=== PATIENT | male | born 1965 | race Hispanic/Latino ===

== ENCOUNTER 2021-06-26 01:17 | Day surgery (SDC) | payer OTHER, SELFPAY ==
[2021-06-16 13:00] VITALS: BMI 33.2
[2021-06-26 06:56] VITALS: BP 137/85; PULSE 68; RESP 18; TEMP 35.6; O2SAT 100
[2021-06-26] MEDS: LACTATED RINGERS 1,000 ML 150 ML IV CONT (07:00)
--- NOTE | 2021-06-26 07:10 | WPDANESEPPF ---
Anes - Initial Pre Proc Eval Procedure: Operation Date: 06/26/21 08:15 Proposed Procedures p Screening Colonoscopy - Winston Agee MD Date/Time: 06/26/21 07:10 Surgeon: Winston Agee MD Pre Op Diagnosis: hx of colon polyps, neoplasm screening Patient Data Age: 55 Gender: M Height: 1.78 m Weight: 107 kg Last Vital Signs Temp 35.6 C L 06/26/21 06:56 Pulse 68 06/26/21 06:56 Resp 18 06/26/21 06:56 BP 137/85 06/26/21 06:56 Pulse Ox 100 06/26/21 06:56 Allergies Allergy/AdvReac Type Severity Reaction Status Date / Time No Known Allergies Allergy Verified 06/26/21 06:55 Home Medications Medication Instructions Recorded Confirmed Type blood sugar diagnostic #300 each 01/16/21 03/01/21 Rx metformin 500 mg tablet,extended 1,000 mg PO QPM #180 tablet 03/27/21 06/16/21 Rx release 24hr meloxicam 15 mg tablet 15 mg PO DAILY #90 tablet 04/26/21 06/16/21 Rx Invokana 300 mg PO DAILY 06/16/21 06/16/21 History atorvastatin 40 mg PO DAILY 06/16/21 06/16/21 History fenofibrate micronized 200 mg PO DAILY 06/16/21 06/16/21 History zolpidem 10 mg PO QHS PRN 06/16/21 06/16/21 History Patient hx anesthesia problems: none Family hx anesthesia problems: none PMFSH Past Medical History Medical History Marrero's palsy 2013 Dyslipidemia History of colon polyps Insomnia Type 2 diabetes mellitus without complication, without long-term current use of insulin Unspecified osteoarthritis, unspecified site Surgical History Surgical History History of cardiac cath 2009 History of discectomy 2008 - lumbar spine surgery History of partial knee replacement Right Knee - 11/2015 History of right shoulder replacement 12/2019 History of surgery on right wrist 2006 - post fall Family History Family History Grandparent Diabetes mellitus Father Family history of cardiovascular disease Other Carcinoma of colon Social History Social History Smoking status: Never smoker Second hand tobacco smoke exposure: No Alcohol intake: current Alcohol use details: no history Substance use: never Substance use type: does not use Living arrangements: with family Gender identity (if verbalized by the patient): Male Spiritual care concerns: No Anes - Eval Final PreProcedure Day of Procedure 06/26/21 07:10 Patient weight: obese Heart: regular rate and rhythm Lungs: clear to auscultation Airway: Mallampati scale class 1 Neurological: alert and oriented Last oral intake: >/= 8 hours ASA classification: II Emergent: no Anesthetic plan: proceed Anesthesia type and monitoring: general GIVS Informed Consent: The patient's anesthetic plan and its attendant risks and benefits were discussed with the patient/family/POA. Questions were solicited and answers provided to the satisfaction of the patient/family/POA.
[2021-06-26 07:20] LABS: Glucose Point of Care 151 mg/dl (65-105)
--- NOTE | 2021-06-26 07:58 | WPDGICN ---
Assessment and Plan Assessment and plan (1) History of colon polyps: Code(s): Z86.010 - Personal history of colonic polyps Status: Acute Assessment and Plan: Patient has a prior history of colon polyps. For this reason colonoscopy has been suggested at 5 year intervals. Further recommendations will be given after endoscopy. (2) Family history of colon cancer in father: Code(s): Z80.0 - Family history of malignant neoplasm of digestive organs Status: Acute Assessment and Plan: Patient's father had colon cancer. For this reason patient is advised to have colonoscopy follow-up set 5 year intervals. GI Consult Note Consult date/time: 06/26/21 07:58 HPI: Fernando Gates is a 55 year old male Presents for screening colonoscopy. Patient has a history of colon polyps by previous colonoscopy 2010. Current weight appetite bowel movements are normal. He denies abdominal pain. He has had no bleeding. Family history is significant that his father had colon cancer. Patient presents today for screening colonoscopy. Review of Systems Review of Systems: All systems reviewed & are unremarkable except as noted in HPI and below PMFSH Past Medical History Medical History Marrero's palsy 2014 Dyslipidemia History of colon polyps Insomnia Type 2 diabetes mellitus without complication, without long-term current use of insulin Unspecified osteoarthritis, unspecified site Surgical History Surgical History History of cardiac cath 2009 History of discectomy 2008 - lumbar spine surgery History of partial knee replacement Right Knee - 11/2015 History of right shoulder replacement 12/2019 History of surgery on right wrist 2006 - post fall Family History Family History Grandparent Diabetes mellitus Father Family history of cardiovascular disease Other Carcinoma of colon Social History Social History Smoking status: Never smoker Second hand tobacco smoke exposure: No Alcohol intake: current Alcohol use details: no history Substance use: never Substance use type: does not use Living arrangements: with family Gender identity (if verbalized by the patient): Male Spiritual care concerns: No Meds Home Medications and Allergies Home Medications Medication Instructions Recorded Confirmed Type blood sugar diagnostic #300 each 01/16/21 03/01/21 Rx metformin 500 mg tablet,extended 1,000 mg PO QPM #180 tablet 03/27/21 06/16/21 Rx release 24hr meloxicam 15 mg tablet 15 mg PO DAILY #90 tablet 04/26/21 06/16/21 Rx Invokana 300 mg PO DAILY 06/16/21 06/16/21 History atorvastatin 40 mg PO DAILY 06/16/21 06/16/21 History fenofibrate micronized 200 mg PO DAILY 06/16/21 06/16/21 History zolpidem 10 mg PO QHS PRN 06/16/21 06/16/21 History Allergies Allergy/AdvReac Type Severity Reaction Status Date / Time No Known Allergies Allergy Verified 06/26/21 06:55 Vital Signs Vital Signs - 24 hr 06/26/21 06:56 Temperature 96.0 F L Pulse Rate 68 Respiratory Rate 18 Blood Pressure 137/85 Pulse Oximetry 100 Exam Narrative: Physical exam reveals patient be alert. Vital signs are stable. HEENT exam is unremarkable. Patient is anicteric. Lungs are clear to auscultation and percussion. Heart is without murmur or extra sounds. Abdominal exam bowel sounds are present soft nontender with no organomegaly. Digital external rectal exam is normal.
[2021-06-26 08:28] VITALS: BP 93/65; PULSE 64; RESP 15; O2SAT 98
[2021-06-26 08:38] VITALS: BP 98/71; PULSE 60; RESP 18; O2SAT 97
[2021-06-26 08:48] VITALS: BP 130/87; PULSE 63; RESP 14; O2SAT 99
== END 2021-06-26 09:01 | disposition home or self-care (01) ==
PROVIDERS: PCP Family Medicine; Visit Provider Internal Medicine Gastroenterology
PROC: 0DJD8ZZ Inspection of Lower Intestinal Tract, Via Natural or Artificial Opening Endoscopic (ICD-10-PCS; CPT 45378; principal; 2021-06-26 08:15)
DX: Z12.11 Encounter for screening for malignant neoplasm of colon (principal); D12.5 Benign neoplasm of sigmoid colon; Z80.0 Family history of malignant neoplasm of digestive organs; K64.8 Other hemorrhoids; E78.5 Hyperlipidemia, unspecified; E11.9 Type 2 diabetes mellitus without complications; G47.00 Insomnia, unspecified; Z79.84 Long term (current) use of oral hypoglycemic drugs; E66.9 Obesity, unspecified; Z68.33 Body mass index [BMI] 33.0-33.9, adult
CPT/HCPCS: 45385; 82948; 88305; J2704; J7120

== ENCOUNTER 2021-11-11 19:03 | Emergency (ER) | payer OTHER, SELFPAY ==
--- NOTE | ~2021-11-11 | XR_ITS ---
EXAMINATION: XR chest 2V 11/11/2021 19:31 INDICATION: Cough PROCEDURE: 2 view chest COMPARISON: No prior studies for comparison. FINDINGS: The lungs are clear. The cardiomediastinal silhouette is within normal limits. There are no pleural effusions. There is no pneumothorax suspected. IMPRESSION: 1: NO ACUTE CARDIOPULMONARY DISEASE. Reviewed, dictated and finalized at location A. [facility]
[2021-11-11 19:10] VITALS: BP 150/69; PULSE 85; RESP 20; TEMP 36.9; O2SAT 98
--- NOTE | 2021-11-11 19:40 | ED.URI ---
HPI - URI/Sore Throat General Chief Complaint: Upper Respiratory Infection Stated Complaint: Cough/Sore Throat/Fever Time Seen by Provider: 11/11/21 19:35 Source: patient, family, RN notes reviewed and old records reviewed Mode of arrival: ambulatory Limitations: no limitations History of Present Illness HPI Narrative: 56-year-old male who presents to [facility] accompanied by family with complaints of 2 week duration of cough, sore throat, sinus congestion and drainage with episodes of some shortness of breath and wheezing. Patient states that he has had sore throat with green yellow nasal drainage noted. He reports that he has had head pressure and sinus pain with no fevers noted or any episodes of chills or sweats or body aches. He reports that he has taken Sudafed,Tylenol, [place] Post, NyQuil, and Emerg C. Patient has had COVID vaccinations.. MD elicited complaint: fever, cough and sore throat Related Data Home Medications Medication Instructions Recorded Confirmed fenofibrate micronized 200 mg PO DAILY 06/16/21 11/11/21 canagliflozin [Invokana] 300 mg PO DAILY 11/11/21 11/11/21 Allergies Allergy/AdvReac Type Severity Reaction Status Date / Time No Known Allergies Allergy Verified 11/11/21 19:21 Review of Systems Review of Systems: CONSTITUTIONAL: Denies acute fever, chills, or sweats. EYES: Denies visual changes, redness, or discharge. ENT: Positive for rhinorrhea, congestion, sore throat, no otalgia. CARDIOVASCULAR: Denies chest pain, palpitations, or edema. RESPIRATORY: Positive cough or dyspnea. GASTROINTESTINAL: Denies abdominal pain, nausea, vomiting, or diarrhea. GENITOURINARY: Denies dysuria or hematuria. SKIN: Denies rash or itching. MUSCULOSKELETAL: Denies back pain, joint pain, or myalgia. NEUROLOGIC: Positive for headache, no numbness, or weakness. PSYCHIATRIC: Denies anxiety or depression. All systems reviewed & are unremarkable except as noted in HPI and below PMFSH Past Medical History Medical History Marrero's palsy 2014 Dyslipidemia History of colon polyps Insomnia Type 2 diabetes mellitus without complication, without long-term current use of insulin Unspecified osteoarthritis, unspecified site Surgical History Surgical History History of cardiac cath 2010 History of discectomy 2009 - lumbar spine surgery History of partial knee replacement Right Knee - 11/2015 History of right shoulder replacement 12/2019 History of surgery on right wrist 2006 - post fall Family History Family History Grandparent Diabetes mellitus Father Family history of cardiovascular disease Other Carcinoma of colon Social History Social History Smoking status: Never smoker Second hand tobacco smoke exposure: No Alcohol intake: current Alcohol use details: no history Substance use: never Substance use type: does not use Gender identity (if verbalized by the patient): Male Spiritual care concerns: No Comments At time of signature, agree with nursing past medical, surgical, social and family history. There is no relevant family history pertinent to the presenting complaint Exam Narrative: GENERAL: Well-appearing, well-nourished, and in no acute distress. HEAD: Normocephalic, atraumatic. EYES: PERRLA and EOMI. ENT: Nares red swollen with clear rhinorrhea no epistaxis. Mucous membranes moist TM;s normal with dull light reflex, throat red with uvula swollen, no lesions or exudates, no tonsil swelling, post nasal drainage present. NECK: Supple.no lymphadenopathy CHEST: Coarse right base to auscultation. No respiratory distress. SAO2 98% on room air HEART: Regular rate and rhythm. No murmur heard. Normal peripheral pulses. ABDOMEN: Soft, nontender, nondistended,
== END 2021-11-11 20:00 | disposition home or self-care (01) ==
PROVIDERS: Emergency Provider Registered Nurse
DX: J32.9 Chronic sinusitis, unspecified (principal); E78.5 Hyperlipidemia, unspecified; E11.9 Type 2 diabetes mellitus without complications; M19.90 Unspecified osteoarthritis, unspecified site; Z96.611 Presence of right artificial shoulder joint; Z96.651 Presence of right artificial knee joint
CPT/HCPCS: 71046; 99213; G0463

== ENCOUNTER 2022-12-18 15:53 | Outpatient (CLI) | payer OTHER, SELFPAY ==
[2022-12-18 20:22] LABS: Alanine Aminotransferase 35 U/L (6-50); Albumin Level 4.3 g/dL (3.5-5.1); Alkaline Phosphatase 42 U/L (38-126); Anion Gap 8 mmol/L (8-16); Aspartate Amino Transferase 42 U/L (17-59); Bilirubin,Total 0.4 mg/dL (0.2-1.3); Blood Urea Nitrogen 25 mg/dL (9-20); Calcium 9.3 mg/dL (8.4-10.2); Carbon Dioxide 27 mmol/L (22-30); Chloride 103 mmol/L (98-107); Estimated Glomerular Filt Rate > 60; Glucose 153 mg/dL (65-110); Potassium 4.1 mmol/L (3.4-5.0); Sodium 138 mmol/L (137-145)
== END 2022-12-18 15:54 | disposition home or self-care (01) ==
LOC: ANHGOSHLAB 15:55
PROVIDERS: PCP Family Medicine; Visit Provider Nurse Practitioner Family
DX: I10 Essential (primary) hypertension (principal)
CPT/HCPCS: 36415; 80053

== ENCOUNTER 2023-02-02 11:46 | Emergency (ER) | payer OTHER, SELFPAY ==
[2023-02-02 11:56] VITALS: BP 140/67; PULSE 72; RESP 16; TEMP 36.5; O2SAT 97
--- NOTE | 2023-02-02 12:17 | ED.ABDPAIN ---
HPI - Abdominal Pain General Chief Complaint: Abdominal Pain Stated Complaint: Pain in sternim / diarrhea History of Present Illness HPI narrative: Patient presents with chronic abdominal pain. Patient was evaluated by his primary care provider 9 days ago and started on omeprazole. Patient has not taken his omeprazole on a daily basis. Patient was advised to avoid spicy and fried foods and fast foods which she has not done. Patient also had an appointment with a statistical analyst , which she missed because he forgot about the appointment. Patient states he plans to reschedule the appointment on Saturday. Patient is here today for continued abdominal pain and diarrhea. Patient reports several loose stools that started last night after he had fast food. Related Data Allergies Allergy/AdvReac Type Severity Reaction Status Date / Time No Known Allergies Allergy Verified 01/24/23 10:04 Review of Systems Review of Systems: CONSTITUTIONAL: Denies fever, chills, or sweats. EYES: Denies visual changes, redness, or discharge. ENT: Denies rhinorrhea, congestion, sore throat, or otalgia. CARDIOVASCULAR: Denies chest pain, palpitations, or edema. RESPIRATORY: Denies cough or dyspnea. GASTROINTESTINAL: Denies abdominal pain, nausea, vomiting, or diarrhea. GENITOURINARY: Denies dysuria or hematuria. SKIN: Denies rash or itching. MUSCULOSKELETAL: Denies back pain, joint pain, or myalgia. NEUROLOGIC: Denies headache, numbness, or weakness. PSYCHIATRIC: Denies anxiety or depression. [facility] Past Medical History Medical History Marrero's palsy 2013 Dyslipidemia Erectile dysfunction History of colon polyps Insomnia Type 2 diabetes mellitus without complication, without long-term current use of insulin Unspecified osteoarthritis, unspecified site Surgical History Surgical History History of cardiac cath 2010 History of discectomy 2008 - lumbar spine surgery History of partial knee replacement Right Knee - 11/2015 History of right shoulder replacement 12/2019 History of surgery on right wrist 2006 - post fall Family History Family History Grandparent Diabetes mellitus Father Family history of cardiovascular disease Other Carcinoma of colon Social History Social History (Reviewed 02/02/23 @ 12:22 by CHAKA Blair Smoking status: Never smoker Second hand tobacco smoke exposure: No Alcohol intake: current Alcohol use details: no history Substance use: never Substance use type: does not use Lack of Transportation: No Lack of Food: Never True Current Housing: I Have Housing Concerned About Future Housing: No Difficulty Paying Gas/Electric Bills: No Difficulty Paying for Meds: No Currently Unemployed: No Education: Trade/Vocational Certificate Difficulty w/ Childcare or Family Care: No Living arrangements: with family Occupation/Education: occupation Gender identity (if verbalized by the patient): Male Spiritual care concerns: No Comments At time of signature, agree with nursing past medical, surgical, social and family history. There is no relevant family history pertinent to the presenting complaint Exam Narrative: GENERAL: Well-appearing, well-nourished, and in no acute distress. HEAD: Normocephalic, atraumatic. EYES: PERRLA and EOMI. ENT: Nares clear, no rhinorrhea or epistaxis. Mucous membranes moist. NECK: Supple. CHEST: Clear to auscultation. No respiratory distress. HEART: Regular rate and rhythm. No murmur heard. Normal peripheral pulses. ABDOMEN: Soft, nontender, nondistended, normal active bowel sounds. Mild tenderness right upper quadrant no guarding no positive signs EXTREMITIES: Normal range of motion. No edema. SKIN: Warm, dry, no rash. NEURO: No focal deficits. Alert and oriented x3. [facility] [employer]
== END 2023-02-02 12:32 | disposition home or self-care (01) ==
PROVIDERS: Emergency Provider Nurse Practitioner Family; PCP Family Medicine
DX: R19.7 Diarrhea, unspecified (principal); K21.9 Gastro-esophageal reflux disease without esophagitis; E78.5 Hyperlipidemia, unspecified; E11.9 Type 2 diabetes mellitus without complications
CPT/HCPCS: 99211; G0463

== ENCOUNTER 2023-03-12 00:32 | Day surgery (SDC) | payer OTHER, SELFPAY ==
[2023-03-07 14:17] VITALS: BMI 34.4
--- NOTE | 2023-03-11 13:00 | WPDANESEPPF ---
Anes - Initial Pre Proc Eval Procedure: Operation Date: 03/12/23 09:00 Proposed Procedures p Esophagogastroduodenoscopy - Winston Agee MD Date/Time: 03/11/23 13:00 Surgeon: Winston Agee MD Pre Op Diagnosis: epigastric discomfort Patient Data Age: 57 Gender: M Height: 1.78 m Weight: 109 kg Allergies Allergy/AdvReac Type Severity Reaction Status Date / Time No Known Allergies Allergy Verified 03/15/23 15:10 Home Medications Medication Instructions Recorded Confirmed Type metformin 500 mg tablet,extended 1,000 mg PO QPM #180 tabs 06/26/22 03/18/23 Rx release 24hr meloxicam 15 mg tablet 15 mg PO DAILY #90 tabs 11/12/22 03/18/23 Rx tadalafil 20 mg tablet 20 mg PO DAILY PRN sexual activity 01/24/23 03/18/23 Rx #30 tabs atorvastatin 40 mg tablet 40 mg PO QHS #90 tabs 02/04/23 03/18/23 Rx fenofibrate micronized 200 mg 200 mg PO DAILY #90 caps 02/04/23 03/18/23 Rx capsule blood sugar diagnostic #300 ea 02/08/23 03/18/23 Rx blood sugar diagnostic (OneTouch #100 ea 02/12/23 03/18/23 Rx Verio test strips) blood-glucose meter (OneTouch #1 ea 02/12/23 03/18/23 Rx Verio Meter) lancets (OneTouch UltraSoft #100 ea 02/12/23 03/18/23 Rx Lancets) omeprazole 40 mg capsule,delayed 40 mg PO DAILY 1 month #30 caps 02/19/23 03/18/23 Rx release zolpidem 10 mg tablet 10 mg PO QHS 03/07/23 03/18/23 History semaglutide 0.25 mg or 0.5 mg (2 0.5 mg (0.8 mL) subcut WEEKLY #3 mL 03/21/23 Rx mg/3 mL) subcutaneous pen injector Patient hx anesthesia problems: none Family hx anesthesia problems: none Results Review: All pre-operative results and documents have been reviewed as part of the pre-operative evaluation. [facility] Past Medical History Medical History Anxiety Marrero's palsy 2013 BRBPR (bright red blood per rectum) COVID Dyslipidemia Epigastric discomfort Erectile dysfunction History of colon polyps Insomnia Type 2 diabetes mellitus without complication, without long-term current use of insulin Unspecified osteoarthritis, unspecified site Surgical History Surgical History History of cardiac cath 2010 History of discectomy 2009 - lumbar spine surgery History of partial knee replacement Right Knee - 11/2015 History of right shoulder replacement 12/2019 History of surgery on right wrist 2006 - post fall Family History Family History Grandparent Diabetes mellitus Father Family history of cardiovascular disease Other Carcinoma of colon Social History Social History Smoking status: Never smoker Second hand tobacco smoke exposure: No Alcohol intake: current Alcohol use details: no history Substance use: current Substance use type: marijuana Other substance usage details: OCC. Lack of Transportation: No Lack of Food: Never True Current Housing: I Have Housing Concerned About Future Housing: No Difficulty Paying Gas/Electric Bills: No Difficulty Paying for Meds: No Currently Unemployed: No Education: Trade/Vocational Certificate Difficulty w/ Childcare or Family Care: No Living arrangements: with family Occupation/Education: occupation Gender identity (if verbalized by the patient): Male Spiritual care concerns: No Anes - Eval Final PreProcedure Day of Procedure 03/11/23 13:00 Patient weight: obese Heart: regular rate and rhythm Lungs: clear to auscultation Airway: Mallampati scale class II Neurological: alert and oriented Last oral intake: >/= 8 hours ASA classification: III Emergent: no Anesthetic plan: proceed Anesthesia type and monitoring: general GIVS and standard monitoring Results Review: All pre-operative results and documents have been reviewed as part of the pre-operative evaluation. Informe
[2023-03-12 07:48] VITALS: BP 139/73; PULSE 71; RESP 18; TEMP 36.4; O2SAT 100; BMI 34.6
[2023-03-12] MEDS: LACTATED RINGERS 1,000 ML 150 ML IV CONT (08:10)
[2023-03-12 08:13] LABS: Glucose Point of Care 159 mg/dl (65-105)
--- NOTE | 2023-03-12 08:32 | WPDHPUPDATE1 ---
History and Physical Update Update Date/Time: 03/12/23 08:32 History and Physical has been reviewed, including an updated exam of the patient. There are NO changes in the patient's condition. Risks, benefits, and alternatives have been discussed and questions answered. Patient agrees to proceed with procedure.
[2023-03-12 09:23] VITALS: BP 159/91; PULSE 81; RESP 23; O2SAT 99
[2023-03-12 09:33] VITALS: BP 103/71; PULSE 67; RESP 20; O2SAT 97
[2023-03-12 09:43] VITALS: BP 127/83; PULSE 70; RESP 16; O2SAT 98
== END 2023-03-12 09:52 | disposition home or self-care (01) ==
PROVIDERS: PCP Family Medicine; Visit Provider Internal Medicine Gastroenterology
PROC: 0DJ08ZZ Inspection of Upper Intestinal Tract, Via Natural or Artificial Opening Endoscopic (ICD-10-PCS; CPT 43235; principal; 2023-03-12 09:00)
DX: R10.13 Epigastric pain (principal); E11.9 Type 2 diabetes mellitus without complications; E78.5 Hyperlipidemia, unspecified; Z79.84 Long term (current) use of oral hypoglycemic drugs; Z79.899 Other long term (current) drug therapy; E66.9 Obesity, unspecified; Z68.34 Body mass index [BMI] 34.0-34.9, adult
CPT/HCPCS: 43239; 82948; 87081; J2704; J7120

== ENCOUNTER 2023-04-25 07:16 | Outpatient (CLI) | payer OTHER, SELFPAY ==
--- NOTE | ~2023-04-25 | CT_ITS ---
CT of the Abdomen and Pelvis: Indication: Abdominal wall bulge Technique: 2.5 mm axial scans were obtained through the abdomen and pelvis following intravenous adm inistration of 100 cc of Omnipaque 350. Dose reduction technique was used on this scan by utilizing a utomated exposure control and iterative reconstruction technique. The dose-length product (DLP) was 1 146.69 mGy-cm. COMPARISON: 06/20/2008 Findings: Scans through the lung bases are unremarkable. The liver, spleen, pancreas, gallbladder, adrenals and kidneys are within normal limits. No evidence of aortic aneurysm. No lymphadenopathy. No bowel obstruction or bowel wall thickening. There is no evidence to suggest acute appendicitis. Images through the pelvis were performed. Urinary bladder unremarkable. Prostate gland and seminal ve sicles are unremarkable. No ascites. Impression: No significant abnormalities seen. No hernia identified. Reviewed, dictated and finalized at [facility]. Impression: No significant abnormalities seen. No hernia identified.
[2023-04-25 07:55] LABS: Estimated Glomerular Filt Rate > 60
== END 2023-04-25 07:17 | disposition home or self-care (01) ==
PROVIDERS: PCP Family Medicine; Visit Provider Nurse Practitioner Family
DX: R19.00 Intra-abdominal and pelvic swelling, mass and lump, unspecified site (principal); E66.9 Obesity, unspecified
CPT/HCPCS: 74177; 84550; Q9967

== ENCOUNTER 2023-04-25 10:44 | Outpatient (CLI) | payer OTHER, SELFPAY ==
[2023-04-25 18:47] LABS: Uric Acid 3.1 mg/dL (3.5-8.5)
== END 2023-04-25 10:45 | disposition home or self-care (01) ==
LOC: ANHGOSHLAB 10:45
PROVIDERS: PCP Family Medicine; Visit Provider Nurse Practitioner Family
DX: M79.674 Pain in right toe(s) (principal)
CPT/HCPCS: 36415; 84550

== ENCOUNTER 2024-03-30 19:13 | Emergency (ER) | payer OTHER, SELFPAY ==
--- NOTE | ~2024-03-30 | XR_ITS ---
EXAMINATION: XR chest 2V Exam Date/Time: 03/30/2024 19:58 CDT HISTORY: cp/sob Comparison: 11/11/2021. RESULT: Lines, tubes, and devices: None. Lungs and pleura: Clear. Cardiomediastinal silhouette: Stable. Other: No acute osseous or upper abdominal finding. IMPRESSION: No acute cardiopulmonary process. Reviewed, dictated and finalized at location K.
--- NOTE | 2024-03-30 19:14 | ECG_ITS ---
SEE SCANNED COPY FOR CONFIRMED REPORT. MTDD
[2024-03-30 19:23] VITALS: BP 134/74; PULSE 74; RESP 16; TEMP 36.6; O2SAT 98
[2024-03-30 19:46] LABS: Basophils Percent Auto 0.4 % (0.2-1.2); Eosinophils Absolute Auto 0.1 K/mm3 (0-0.3); Eosinophils Percent Auto 1.8 % (0-4.4); Hematocrit 42.8 % (42.0-52.0); Hemoglobin 15.4 g/dL (14.0-18.0); Immature Granulocyte Absolute 0.01 K/mm3 (0.00-0.031); Immature Granulocyte Percent A 0.1 % (0-0.5); Lymphocytes Absolute Auto 2.42 K/mm3 (0.9-3.2); Lymphocytes Percent Auto 36.1 % (18.3-44.2); Mean Corpuscular Hemoglobin 32.5 pg (26-34); Mean Corpuscular Volume 90.3 fl (80-100); Mean Platelet Volume 9.4 fl (7.4-10.4); Monocytes Absolute Auto 0.5 K/mm3 (0.1-0.6); Neutrophils Absolute Auto 3.7 K/mm3 (1.3-6.7); Neutrophils Percent Auto 54.6 % (45.5-73.1); Platelet Count Result 223 k/mm3 (150-375); Red Blood Count 4.74 M/mm3 (4.6-6.20); Red Cell Distribution Width 12.4 % (11.5-14.5); White Blood Count 6.7 K/mm3 (4.5-10.0)
[2024-03-30 19:56] LABS: Alanine Aminotransferase 31 U/L (6-50); Albumin Level 4.9 g/dL (3.5-5.1); Alkaline Phosphatase 49 U/L (38-126); Anion Gap 10 mmol/L (4-12); Aspartate Amino Transferase 35 U/L (17-59); Bilirubin,Total 0.7 mg/dL (0.2-1.3); Blood Urea Nitrogen 17 mg/dL (9-20); Carbon Dioxide 25 mmol/L (22-30); Chloride 106 mmol/L (98-107); Estimated CRCL calculation 117 ml/min; Estimated Glomerular Filt Rate > 60; Glucose 102 mg/dL (65-110); Lipase 246 U/L (23-300); Potassium 4.1 mmol/L (3.4-5.0); Sodium 141 mmol/L (137-145)
[2024-03-30 19:59] LABS: INR 0.9; Prothrombin Time 12.1 Seconds (11.1-14.7)
[2024-03-30 20:00] LABS: Partial Thromboplastin Time 26.2 Seconds (22.3-36.8)
[2024-03-30 20:07] LABS: Troponin I < 0.012 ng/mL (0.000-0.034)
[2024-03-30 23:58] VITALS: BP 162/87; PULSE 69; RESP 15; O2SAT 100
[2024-03-31 00:36] LABS: Troponin I < 0.012 ng/mL (0.000-0.034)
[2024-03-31] MEDS: ASPIRIN 81 MG CHEWABLE TABLET 324 MG PO (00:37)
[2024-03-31 00:59] VITALS: O2SAT 100
[2024-03-31 01:00] VITALS: PULSE 64
[2024-03-31 01:03] VITALS: BP 125/91; PULSE 71; RESP 15; O2SAT 100
--- NOTE | 2024-03-31 01:47 | ED.GENADULT ---
HPI - General Adult General Chief complaint: Chest Pain Stated complaint: chest pain Time Seen by Provider: 03/30/24 23:28 History of Present Illness HPI narrative: Patient is a 58-year-old gentleman presents emergency department with chief complaint of chest discomfort patient reports last 2 days he has been having some discomfort on the left side of his chest patient reports feels a spasm in his chest. Patient reports that he is scheduled to see Cardiology later this week but decided to come into the emergency department to be evaluated. Related Data Allergies Allergy/AdvReac Type Severity Reaction Status Date / Time No Known Allergies Allergy Verified 03/30/24 19:13 Review of Systems Review of Systems: A 10 system review of systems was completed on the patient and is negative except for what is stated in the HPI. Nursing and ancillary documentation was reviewed. [facility] Past Medical History Medical History Anxiety Marrero's palsy 2013 BRBPR (bright red blood per rectum) COVID Dyslipidemia Epigastric discomfort Erectile dysfunction Family history of colon cancer in father History of colon polyps Insomnia Obese Type 2 diabetes mellitus without complication, without long-term current use of insulin Unspecified osteoarthritis, unspecified site Surgical History Surgical History History of cardiac cath 2009 History of discectomy 2008 - lumbar spine surgery History of partial knee replacement Right Knee - 11/2015 History of right shoulder replacement 12/2019 History of surgery on right wrist 2006 - post fall Family History Family History Grandparent Diabetes mellitus Father Family history of cardiovascular disease Other Carcinoma of colon Social History Social History Smoking status: Never smoker Second hand tobacco smoke exposure: No Alcohol intake: current Alcohol use details: no history Substance use: current Substance use type: marijuana Other substance usage details: OCC. Lack of Transportation: No Lack of Food: Never True Current Housing: I Have Housing Concerned About Future Housing: No Difficulty Paying Gas/Electric Bills: No Difficulty Paying for Meds: No Currently Unemployed: No Education: Trade/Vocational Certificate Difficulty w/ Childcare or Family Care: No Living arrangements: with family Occupation/Education: occupation Gender identity (if verbalized by the patient): Male Spiritual care concerns: No Exam Narrative: GENERAL: Well-appearing, well-nourished, and in no acute distress. HEAD: Normocephalic, atraumatic. EYES: PERRLA and EOMI. ENT: Nares clear, no rhinorrhea or epistaxis. Mucous membranes moist. NECK: Supple. CHEST: Clear to auscultation. No respiratory distress. HEART: Regular rate and rhythm. No murmur heard. Normal peripheral pulses. ABDOMEN: Soft, nontender, nondistended, normal active bowel sounds. EXTREMITIES: Normal range of motion. No edema. SKIN: Warm, dry, no rash. NEURO: No focal deficits. Alert and oriented x3. PSYCH: Normal mood and affect. Course Vital Signs Vital signs: Vital Signs Temperature 36.6 C 03/30/24 19:23 Pulse Rate 74 03/30/24 19:23 Respiratory Rate 16 03/30/24 19:23 Blood Pressure 134/74 03/30/24 19:23 Pulse Oximetry 98 03/30/24 19:23 Temperature 36.6 C 03/30/24 19:23 Pulse Rate 71 03/31/24 01:03 Respiratory Rate 15 03/31/24 01:03 Blood Pressure 125/91 H 03/31/24 01:03 Pulse Oximetry 100 03/31/24 01:03 Oxygen Delivery Room Air 03/31/24 00:59 Medical Decision Making MDM Narrative Medical decision making narrative: Differential diagnosis includes ACS, atypical chest pain, noncardiac ann
[2024-03-31 02:06] VITALS: BP 130/88; PULSE 73; RESP 14; O2SAT 98
== END 2024-03-31 02:07 | disposition home or self-care (01) ==
PROVIDERS: Emergency Provider Emergency Medicine; PCP Family Medicine
DX: R07.89 Other chest pain (principal); F41.9 Anxiety disorder, unspecified; E11.9 Type 2 diabetes mellitus without complications; M19.90 Unspecified osteoarthritis, unspecified site
CPT/HCPCS: 36415; 71046; 80053; 83690; 84484; 85025; 85610; 85730; 93005; 99284; A9270

== ENCOUNTER 2025-08-17 06:44 | Outpatient (CLI) | payer OTHER, SELFPAY ==
[2025-08-17 07:35] LABS: Hematocrit 41.5 % (42.0-52.0); Hemoglobin 14.3 g/dL (14.0-18.0); Immature Granulocyte Percent A 0.2 % (0-0.5); Lymphocytes Absolute Auto 1.55 K/mm3 (0.9-3.2); Mean Corpuscular HGB Conc 34.5 g/dl (32-36); Mean Corpuscular Hemoglobin 31.0 pg (26-34); Mean Corpuscular Volume 90.0 fl (80-100); Nucleated Red Blood Cells Absolute Auto 0.000 K/mm3 (0.0-0.012); Nucleated Red Blood Cells Perc 0.0 % (0.0-0.2); Platelet Count Result 221 k/mm3 (150-375); Red Blood Count 4.61 M/mm3 (4.6-6.20); White Blood Count 4.7 K/mm3 (4.5-10.0)
[2025-08-17 08:00] LABS: Alanine Aminotransferase 26 U/L (6-50); Albumin Level 4.0 g/dL (3.5-5.1); Alkaline Phosphatase 38 U/L (38-126); Anion Gap 7 mmol/L (4-12); Aspartate Amino Transferase 28 U/L (17-59); Bilirubin,Total 0.4 mg/dL (0.2-1.3); Blood Urea Nitrogen 16 mg/dL (9-20); Calcium 8.7 mg/dL (8.4-10.2); Carbon Dioxide 24 mmol/L (22-30); Chloride 104 mmol/L (98-107); Estimated Glomerular Filt Rate > 60; Glucose 129 mg/dL (65-110); Potassium 4.0 mmol/L (3.4-5.0); Sodium 135 mmol/L (137-145); Total Protein 6.8 g/dL (6.3-8.2)
[2025-08-17 08:12] LABS: Free T4 Free Thyroxine 1.11 ng/dL (0.78-2.19)
[2025-08-17 08:37] LABS: Thyroid Stimulating Hormone 3.810 uIU/mL (0.465-4.680)
[2025-08-17 08:56] LABS: Vitamin B12 313.0 pg/mL (239-931)
[2025-08-17 09:49] LABS: Hemoglobin A1C 6.3 % (<5.7)
== END 2025-08-17 06:45 | disposition home or self-care (01) ==
LOC: ANHLAB 06:45
PROVIDERS: PCP Family Medicine; Visit Provider Nurse Practitioner Family
DX: I10 Essential (primary) hypertension (principal); E11.9 Type 2 diabetes mellitus without complications; R53.83 Other fatigue
CPT/HCPCS: 36415; 80053; 82607; 83036; 84439; 84443; 85025